=== PATIENT | female | born 1995 | race Caucasian/White ===

== ENCOUNTER 2018-06-02 16:18 | Observation (INO) | payer MEDICAID ==
[~2018-06-02] VITALS: Ht 167.6 cm; Wt 54.5 kg
[2018-06-02] MEDS ORDERED: PLEASE ENTER HEIGHT AND WEIGHT MC SCH (16:30)
[2018-06-02] MEDS ORDERED: LORazepam 1MG TABLET PO ONE (16:30)
[2018-06-02 16:40] LABS: BASOPHILS # (AUTO) 0.04 x10^3/uL (0-0.1); BASOPHILS % (AUTO) 1 % (0-1); EOSINOPHILS # (AUTO) 0.05 x10^3/uL (0-0.4); EOSINOPHILS % (AUTO) 1 % (1-7); LYMPHOCYTES # (AUTO) 1.79 x10^3/uL (1-3.4); LYMPHOCYTES % (AUTO) 20 % (22-44); MD NO; MEAN CORPUSCULAR HEMOGLOBIN 27.9 pg (27.0-34.8); MEAN CORPUSCULAR HGB CONC 33.5 g/dL (32.4-35.8); MEAN CORPUSCULAR VOLUME 83.2 fL (80-100); MEAN PLATELET VOLUME 9.4 fL (7.4-10.4); MONOCYTES # (AUTO) 0.56 x10^3/uL (0.2-0.8); MONOCYTES % (AUTO) 6 % (2-9); NEUTROPHILS # (AUTO) 6.54 x10^3/uL (1.8-6.8); NEUTROPHILS % (AUTO) 73 % (42-75); PLATELET COUNT 234 x10^3/uL (130-400); RED BLOOD COUNT 4.97 x10^6/uL (3.82-5.3); RED CELL DISTRIBUTION WIDTH 12.4 % (9.6-15.2)
[2018-06-02 16:52] LABS: ALBUMIN 4.2 g/dL (3.4-5.0); ANION GAP 7 mmol/L (5-15); CALCIUM 9.3 mg/dL (8.5-10.1); CHLORIDE 107 mmol/L (98-107); CREATININE 0.85 mg/dL (0.55-1.02)
[2018-06-02 16:53] LABS: SALICYLATE LEVEL < 1.7 mg/dL (2.8-20.0)
[2018-06-02] MEDS ORDERED: PROZAC (16:53)
[2018-06-02] MEDS ORDERED: RISPERIDONE (16:53)
[2018-06-02] MEDS ORDERED: LORazepam 1MG TABLET ONE (16:56)
[2018-06-02 16:57] LABS: ALKALINE PHOSPHATASE 84 U/L (45-117); BILIRUBIN,TOTAL 0.3 mg/dL (0.2-1.0); TOTAL PROTEIN 8.4 g/dL (6.4-8.2)
[2018-06-02 17:01] LABS: ACETAMINOPHEN < 2 mcg/mL (10-30)
[2018-06-02 17:02] LABS: ALANINE AMINOTRANSFERASE 31 U/L (12-78)
[2018-06-02] MEDS ORDERED: BISACODYL 10 MG SUPP PR PRN (18:00)
[2018-06-02] MEDS ORDERED: ONDANSETRON ODT 4 MG PO PRN (18:00)
[2018-06-02] MEDS ORDERED: LORazepam 1MG TABLET PO PRN (18:00)
[2018-06-02] MEDS ORDERED: TEMAZEPAM 15 MG CAPSULE PO PRN (18:00)
[2018-06-02] MEDS ORDERED: HALOPERIDOL 5 MG TABLET PO PRN (18:00)
[2018-06-02] MEDS ORDERED: DOCUSATE 100 MG CAPSULE PO PRN (18:00)
[2018-06-02] MEDS ORDERED: ACETAMINOPHEN 325 MG TABLET PO PRN (18:00)
[2018-06-02] MEDS ORDERED: ZIPRASIDONE 20MG CAPSULE PO PRN (18:00)
[2018-06-02 18:05] LABS: MICROSCOPIC NOT IND
[2018-06-02 18:08] LABS: AMPHETAMINE SCREEN, URINE Negative (Negative); BARBITURATE SCREEN, URINE Negative (Negative); BENZODIAZEPINE SCREEN, URINE Negative (Negative); CANNABINOID SCREEN, URINE Negative (Negative); COCAINE SCREEN, URINE Negative (Negative); METHADONE SCREEN, URINE Negative (Negative); OPIATE SCREEN, URINE Negative (Negative)
[2018-06-02 18:18] LABS: CULTURE INDICATED? NO
[2018-06-02 20:30] VITALS: BP 116/76
[2018-06-02] MEDS ORDERED: RISPERIDONE 1 MG TABLET PO SCH (21:00)
[2018-06-03] MEDS ORDERED: FLUOXETINE 10 MG CAP PO SCH (09:00)
== END 2018-06-02 22:41 ==
LOC: ED 16:44 → EDIP 17:32 → 2N 20:12
PROVIDERS: ADMIT Hospitalist; ATTEND Hospitalist
DX: F32.9 Major depressive disorder, single episode, unspecified (principal); F29 Unspecified psychosis not due to a substance or known physiological condition; R45.851 Suicidal ideations; F22 Delusional disorders; F41.1 Generalized anxiety disorder; R45.850 Homicidal ideations
CPT/HCPCS: 36415; 80053; 80307; 80329; 81003; 84443; 84703; 85025; 99285; G0378; G0480

== ENCOUNTER 2019-03-24 19:33 | Emergency (ER) | payer MEDICAID ==
[~2019-03-24] VITALS: Ht 167.6 cm; Wt 61.9 kg
[~2019-03-24 19:33] MED LIST: PROZAC; RISPERIDONE
[2019-03-24 19:36] VITALS: BP 113/77
--- NOTE | 2019-03-24 20:41 | NUR ---
PA AT BEDSIDE FOR PELVIC EXAM
[2019-03-24 20:42] LABS: HCG UR SG 1.015 (1.003-1.030); MICROSCOPIC NOT IND
[2019-03-24 20:44] LABS: CULTURE INDICATED? NO
[2019-03-24 21:27] LABS: CLUE CELLS NONE SEEN (NONE SEEN)
[2019-03-24] MEDS ORDERED: AZITHROMYCIN 500 MG TABLET ONE (21:43)
[2019-03-24] MEDS ORDERED: CEFTRIAXONE 250 MG ONE (21:43)
[2019-03-24] MEDS ORDERED: CEFTRIAXONE 250 MG IM ONE (22:00)
[2019-03-24] MEDS ORDERED: AZITHROMYCIN 500 MG TABLET PO ONE (22:00)
== END 2019-03-24 22:07 | disposition home or self-care (01) ==
LOC: ED 21:17
DX: N72 Inflammatory disease of cervix uteri (principal); L29.2 Pruritus vulvae
CPT/HCPCS: 81003; 81025; 87210; 87491; 87591; 87808; 96372; 99283; J0696

== ENCOUNTER 2019-05-22 21:52 | Emergency (ER) | payer MEDICAID ==
[~2019-05-22] VITALS: Ht 167.6 cm; Wt 62.8 kg
[2019-05-22 22:05] VITALS: BP 127/74
== END 2019-05-22 23:45 | disposition home or self-care (01) ==
LOC: ED 23:15
DX: N89.8 Other specified noninflammatory disorders of vagina (principal); B37.3 Candidiasis of vulva and vagina; F41.1 Generalized anxiety disorder; F32.9 Major depressive disorder, single episode, unspecified
CPT/HCPCS: 81003; 99283